=== PATIENT | female | born 1995 ===

== ENCOUNTER 2020-08-02 08:41 | Emergency (ER) | payer BC, SELFPAY ==
[2020-08-02 08:53] VITALS: BP 116/61; PULSE 79; RESP 18; TEMP 36.6; O2SAT 99; BMI 23.9
[2020-08-02 09:16] VITALS: BP 119/74; PULSE 78; RESP 16; O2SAT 100
--- NOTE | 2020-08-02 09:19 | PC.NURSE ---
pt alert and oriented, skin pwd, respirations even and unlabored. pt reports on thursday was at bridal shower after then started having nausea and dry heaving, which has resolved, no having right sided temperol headache/general weakness/ poor po intake and one episode of blood in stool. pt also reports having blood in stool in the past, denies abd pain
[2020-08-02 09:37] LABS: MANUAL DIFF FLAG NO
[2020-08-02 09:40] LABS: Glucose Urine UA NEG (NEG); Leukocyte Esterase Urine NEG (NEG); Nitrite Urine NEG (NEG); Urine Blood NEG (NEG); Urine Ketones NEG (NEG); Urine Protein TRACE MG/DL (NEG-TRACE)
[2020-08-02 09:41] LABS: Basophils Percent Auto 0.5 % (0-2); Eosinophils Absolute Auto 0.2 X10*3/uL (0.0-0.4); Eosinophils Percent Auto 3.1 % (0-4); Hematocrit 38.3 % (37-47); Hemoglobin 12.5 g/dl (12.0-16.0); Imm Gran Abs Auto 0.03 X10*3/uL (0.00-0.03); Imm Gran Pct Auto 0.5 % (0.0-0.4); Lymphocytes Absolute Auto 2.3 X10*3/uL (1.2-4.9); Lymphocytes Percent Auto 37.7 % (20-40); Mean Corpuscular HGB Conc 32.6 g/dl (31.0-35.0); Mean Corpuscular Hemoglobin 29.9 pg (27.0-33.0); Mean Corpuscular Volume 91.6 fL (80-98); Mean Platelet Volume 11.1 fL (9.4-12.3); Monocytes Absolute Auto 0.6 X10*3/uL (0.1-1.2); Neutrophils Percent Auto 49.2 % (45-73); Platelet Count 209 X10*3/uL (160-400); Red Blood Count 4.18 X10*6/uL (4.20-5.50); Red Cell Distribution Width 13.2 % (11.0-16.0); White Blood Count 6.1 X10*3/uL (4.8-10.8)
[2020-08-02 09:42] LABS: Appearance Urine CLOUDY; Color Urine YELLOW; UPreg QC Valid YES; Urine Pregnancy NEGATIVE (NEGATIVE)
[2020-08-02 10:00] LABS: Anion Gap 10 (12-20); Blood Urea Nitrogen 11 mg/dL (9-16); Calcium 9.3 mg/dL (8.4-10.2); Carbon Dioxide 26 mmol/L (22-29); Chloride 108 mmol/L (96-108); Creatinine Clr Calc Pharmacy 90.1; Estimated Glomerular Filt Rate > 60; Glucose Random 97 mg/dL (60-115); Potassium 4.1 mmol/L (3.3-5.1); Sodium 140 mmol/L (135-145)
[2020-08-02 10:06] LABS: COVID-19 Test Negative (Negative)
[2020-08-02 10:09] LABS: Prothrombin Time 11.4 SEC (10.8-13.0)
--- NOTE | 2020-08-02 10:36 | ED_ITS ---
HPI - General Adult General Chief complaint: General Medical Stated complaint: vomiting blood Time Seen by Provider: 08/02/20 10:36 History of Present Illness HPI narrative: 24-year-old otherwise healthy female presents to the emergency department with reports of nausea, vomiting and diarrhea with increasing side over the last few days. Patient states over the weekend she went to a bridal shower and ate some food. Shortly after had multiple episodes of nonbloody nonbilious emesis. Denies any blood in the emesis but states she did start to notice some blood in her stool which is not abnormal for her. States this happens at times and is not concerning. Symptoms did improve but she continues to feel nausea which has prevented her from eating and drinking appropriately. States she has also felt more anxious. Tried to reach out to her therapist and there is a psychiatrist referral in process. States she took someone else's risperidone 5 mg on Thursday and feels like this may be her symptoms worse. Denies HI or SI. Denies chest pain or shortness of breath. Denies abdominal pain or dysuria. Denies chance of . Due to concern she felt she needed to be seen. Related Data Allergies Allergy/AdvReac Type Severity Reaction Status Date / Time No Known Allergies Allergy Verified 08/02/20 10:44 Review of Systems Review of Systems: Constitutional : No Weight loss, No Fever, No Chills, No Night Sweats, + Fatigue, + Malaise ENT/Mouth : No Hearing loss, No Ear Pain, No Nasal Congestion, No Sinus Pain, No Hoarseness, No sore throat, No Rhinorrhea, No Swallowing Difficulty Eyes: No Eye Pain, No Swelling, No Redness, No Foreign Body, No Discharge, No Vision Changes Cardiovascular : No Chest Pain, No SOB, No Dyspnea on Exertion, No Orthopnea, No Edema, No Palpitations Respiratory : No Cough, No Sputum, No Wheezing, No Smoke Exposure, No Dyspnea Gastrointestinal : + Nausea, + Vomiting, + Diarrhea, No Constipation, No abdominal Pain, No Hematochezia Genitourinary : no irregular bleeding, No Dysuria, No Urinary Frequency, No Hematuria, No Urinary Incontinence, No Urgency, No Flank Pain, No Urinary Flow Changes, No Hesitancy Musculoskeletal : No joint pain, No Myalgias, No Joint Swelling Skin : No Skin Lesions, No rash Neuro : No Weakness, No Numbness, No Paresthesias, No Loss of Consciousness, No Dizziness, No Headache Psych : + Anxiety/Panic, No Depression, No SI/HI/AH/VH, No Social Issues, Heme/Lymph: No Bruising, No Bleeding,No Lymphadenopathy Endocrine : No Polyuria, No Polydipsia, No Temperature Intolerance [facility] Past Medical History Attestation statement: The following information was validated with the patient. Source: old records reviewed and nursing notes reviewed Surgical History (Updated 08/02/20 @ 08:57 by Alexis Hooper) H/O congenital atrial septal defect (ASD) repair H/O knee surgery Social History Social History Alcohol intake: current Alcohol intake frequency: a few times a week Use of substances other than those prescribed or required for medical reasons: No Advance Directives: Yes Advance Directives Information Provided: Yes Advance Directives on File: No Patient : No Physical Exam Vital Signs: Vital Signs: Last Vital Signs Temp 98 F 08/02/20 08:53 Pulse 75 08/02/20 10:57 Resp 16 08/02/20 10:57 BP 117/78 08/02/20 10:57 Pulse Ox 100 08/02/20 10:57 Body Mass Index 23.9 vital signs have been reviewed as normal and appeared to be correct. Blood pressure normal. Heart rate normal. Respiration rate normal. Temperature normal. Oxygen saturation normal. Appearance: Alert. Oriented X3. No acute distress. Head: Normal external exam. Normocephalic. Atraumatic. No Beyer signs noted. No raccoon eyes noted Eyes: Conjunctiva and sclera normal. ENT: EAC normal. Moist mucous membranes. No drooling noted. No muffled voice noted. Neck: Normal inspection. Neck supple. FROM. No meningeal signs. CVS: Pulses normal throughout. Heart sounds normal. Respiratory: No respiratory distress. Painless inspiration. No accessory muscle usage noted Abdomen: No visible injury noted. Abdomen soft nd/nt. Back: Full range of motion noted. Skin: Skin warm and dry. Normal skin color. Normal skin turgor. Extremities: No lower extremity edema. Extremities exhibit normal range of motion. Neuro: Oriented X 3. No motor deficit. No sensory deficit. Course Reevaluation(s) Reevaluation #1: Patients symptoms have improved, she denies further nausea and tolerated PO. Will d/c home at this time with close outpatient FU. Medical Decision Making MDM Narrative Medical decision making narrative: Patient's vital signs are stable and she is afebrile. Patient presenting to the emergency department with reports of nausea vomiting diarrhea which is overall improved but continues to feel fatigued nauseous and anxious. Patient denies any blood in the emesis does admit to some mild blood in the stool which is normal for her. Labs obtained in triage without significant abnormalities including a stable H&H and normal LFTs. Abdomen soft nondistended nontender no need for abdominal imaging. Will place an IV hydrate with IV fluids medicate with Zofran for nausea and give a small dose of oral Ativan to help with patient's nausea. She is asking to referral to local psychiatrist to hopefully expedite process I feel this is reasonable. Patient adamantly denies SI or HI and seems appropriate will continue to monitor and reassess pending symptomatic control. Patient is stable Lab Data Result diagrams: 08/02/20 09:31 08/02/20 09:31 Labs: Lab Results 08/02/20 08/02/20 08/02/20 Range/Units 09:31 09:31 09:31 WBC 6.1 (4.8-10.8) X10*3/uL RBC 4.18 L (4.20-5.50) X10*6/uL Hgb 12.5 (12.0-16.0) g/dl Hct 38.3 (37-47) % MCV 91.6 (80-98) fL MCH 29.9 (27.0-33.0) pg MCHC 32.6 (31.0-35.0) g/dl RDW 13.2 (11.0-16.0) % Plt Count 209 (160-400) X10*3/uL MPV 11.1 (9.4-12.3) fL Immature Gran % (Auto) 0.5 H (0.0-0.4) % Neut % (Auto) 49.2 (45-73) % Lymph % (Auto) 37.7 (20-40) % [place] % (Auto) 9.0 (2-11) % Eos % (Auto) 3.1 (0-4) % Baso % (Auto) 0.5 (0-2) % Lymph # (Auto) 2.3 (1.2-4.9) X10*3/uL [place] # (Auto) 0.6 (0.1-1.2) X10*3/uL Eos # (Auto) 0.2 (0.0-0.4) X10*3/uL Baso # (Auto) 0.0 (0.0-0.2) X10*3/uL Abs Immat Gran (auto) 0.03 (0.00-0.03) X10*3/uL Absolute Neuts (auto) 3.0 (2.0-8.3) X10*3/uL Absolute Nucleated RBC 0.000 (0.0-0.012) X10*3/uL Nucleated RBC % (auto) 0.0 (0.0-0.2) /100WBC PT 11.4 (10.8-13.0) SEC INR 1.0 (0.9-1.1) Sodium 140 (135-145) mmol/L Potassium 4.1 (3.3-5.1) mmol/L Chloride 108 (96-108) mmol/L Carbon Dioxide 26 (22-29) mmol/L Anion Gap 10 L (12-20) BUN 11 (9-16) mg/dL Creatinine 0.81 (0.5-1.4) mg/dL Estim Creat Clear Calc 90.1 Estimated GFR > 60 Random Glucose 97 (60-115) mg/dL Calcium 9.3 (8.4-10.2) mg/dL Urine Color Urine Appearance Urine pH (5.0-8.0) Ur Specific [place] (1.005-1.025) Urine Protein (NEG-TRACE) MG/DL Urine Glucose (UA) (NEG) MG/DL Urine Ketones (NEG) MG/DL Urine Blood (NEG) Urine Nitrite (NEG) Ur Leukocyte Esterase (NEG) Urine Test (NEGATIVE) COVID-19 (MANUEL) (Negative) COVID-19 Clin Com 08/02/20 08/02/20 08/02/20 Range/Units 09:31 09:31 09:46 WBC (4.8-10.8) X10*3/uL RBC (4.20-5.50) X10*6/uL Hgb (12.0-16.0) g/dl Hct (37-47) % MCV (80-98) fL MCH (27.0-33.0) pg MCHC (31.0-35.0) g/dl RDW (11.0-16.0) % Plt Count (160-400) X10*3/uL MPV (9.4-12.3) fL Immature Gran % (Auto) (0.0-0.4) % Neut % (Auto) (45-73) % Lymph % (Auto) (20-40) % [place] % (Auto) (2-11) % Eos % (Auto) (0-4) % Baso % (Auto) (0-2) % Lymph # (Auto) (1.2-4.9) X10*3/uL [place] # (Auto) (0.1-1.2) X10*3/uL Eos # (Auto) (0.0-0.4) X10*3/uL Baso # (Auto) (0.0-0.2) X10*3/uL Abs Immat Gran (auto) (0.00-0.03) X10*3/uL Absolute Neuts (auto) (2.0-8.3) X10*3/uL Absolute Nucleated RBC (0.0-0.012) X10*3/uL Nucleated RBC % (auto) (0.0-0.2) /100WBC PT (10.8-13.0) SEC INR (0.9-1.1) Sodium (135-145) mmol/L Potassium (3.3-5.1) mmol/L Chloride (96-108) mmol/L Carbon Dioxide (22-29) mmol/L Anion Gap (12-20) BUN (9-16) mg/dL Creatinine (0.5-1.4) mg/dL Estim Creat Clear Calc Estimated GFR Random Glucose (60-115) mg/dL Calcium (8.4-10.2) mg/dL Urine Color YELLOW Urine Appearance CLOUDY Urine pH 7.0 (5.0-8.0) Ur Specific [place] 1.010 (1.005-1.025) Urine Protein TRACE (NEG-TRACE) MG/DL Urine Glucose (UA) NEG (NEG) MG/DL Urine Ketones NEG (NEG) MG/DL Urine Blood NEG (NEG) Urine Nitrite NEG (NEG) Ur Leukocyte Esterase NEG (NEG) Urine Test NEGATIVE (NEGATIVE) COVID-19 (MANUEL) Negative (Negative) COVID-19 Clin Com See Note Discharge Plan Discharge Clinical Impression: Anxiety Vomiting Qualifiers: Vomiting type: unspecified Vomiting Intractability: non-intractable Nausea presence: with nausea Qualified Code(s): R11.2 - Nausea with vomiting, unspecified Patient Disposition: Home, Self-Care Instructions: Acute Nausea and Vomiting (ED), Anxiety (ED) Additional Instructions: You were seen in the ED today for nausea, vomiting and diarrhea with continued nausea since an event this weekend. You have also been more anxious. Were given and anxiety medication which helped her symptoms he refused a nausea medication and fluids. You wanted to go home. [facility] be [facility] which he can reach out to inquire about local psychiatrist. We return to the ED for having thoughts of wanting to hurt herself or others or have continued vomiting and cannot tolerate liquids or solids. Referrals: [facility] [Physician] - 2 days Stand Alone Forms: Work/School Release Interventions: ED Discharge Assessment Last Done: 08/02/20 11:56 Discharge Date/Time: 08/02/20 11:57 Print Language: [place]i
[2020-08-02] MEDS: LORazepam 0.5 MG TABLET PO (10:55)
[2020-08-02 10:57] VITALS: BP 117/78; PULSE 75; RESP 16; O2SAT 100
== END 2020-08-02 11:57 | disposition home or self-care (01) ==
PROVIDERS: Emergency Provider Emergency Medicine Emergency Medical Services
DX: F41.9 Anxiety disorder, unspecified (principal); R11.2 Nausea with vomiting, unspecified; R19.7 Diarrhea, unspecified; Z20.822 Contact with and (suspected) exposure to COVID-19
CPT/HCPCS: 36415; 80048; 81003; 81025; 85025; 85610; 87635; 96361; 96374; 99284

== ENCOUNTER 2021-12-01 11:50 | Emergency (ER) | payer BC, SELFPAY ==
[2021-12-01] VITALS (7 sets, daily range): BP systolic 101–142; BP diastolic 60–90; PULSE 66–110; RESP 18–20; TEMP 36.3–37; O2SAT 98–100; BMI 25.6
--- NOTE | 2021-12-01 | ECG_ITS ---
Test Reason : TACHYCARDIA Blood Pressure : / mmHG Vent. Rate : 085 BPM Atrial Rate : 085 BPM P-R Int : 134 ms QRS Dur : 084 ms QT Int : 374 ms P-R-T Axes : 051 083 050 degrees QTc Int : 445 ms Normal sinus rhythm Normal ECG No previous ECGs available Referred By: Generic ED Physician Electronically Signed By:NELLI SHARPE MD
[2021-12-01 12:21] LABS: MANUAL DIFF FLAG NO
[2021-12-01 12:25] LABS: Basophils Percent Auto 0.5 % (0-2); Eosinophils Absolute Auto 0.3 X10*3/uL (0.0-0.4); Eosinophils Percent Auto 4.1 % (0-4); Hematocrit 37.9 % (37.0-47.0); Hemoglobin 12.6 g/dl (12.0-16.0); Imm Gran Abs Auto 0.04 X10*3/uL (0.00-0.03); Imm Gran Pct Auto 0.5 % (0.0-0.4); Lymphocytes Absolute Auto 2.5 X10*3/uL (1.2-4.9); Mean Corpuscular HGB Conc 33.2 g/dl (31.0-35.0); Mean Corpuscular Hemoglobin 30.4 pg (27.0-33.0); Mean Corpuscular Volume 91.3 fL (80.0-98.0); Mean Platelet Volume 11.6 fL (9.4-12.3); Monocytes Absolute Auto 0.5 X10*3/uL (0.1-1.2); Monocytes Percent Auto 6.1 % (2-11); Neutrophils Absolute Auto 4.2 x10*3/uL (2.0-8.3); Neutrophils Percent Auto 55.8 % (45-73); Platelet Count 204 X10*3/uL (160-400); Red Blood Count 4.15 X10*6/uL (4.20-5.50); Red Cell Distribution Width 12.3 % (11.0-16.0); White Blood Count 7.6 X10*3/uL (4.8-10.8)
--- NOTE | 2021-12-01 12:33 | ED_ITS ---
HPI - General Adult General Chief complaint: Abdominal Pain Stated complaint: S/O DIZZINESS/N/V Time Seen by Provider: 12/01/21 11:52 Source: patient Mode of arrival: ambulatory Limitations: no limitations History of Present Illness HPI narrative: 26-year-old female history ASD repair presents to the emergency department with sudden-onset dizziness, nausea, vomiting, in syncopal episode this morning. Patient tells me that he started feeling dizzy since she woke up, reports she was seeing black dots and then the room started spinning, she got in the shower and started feeling worse, she was able to get out of the shower and go lay on her bed where she tells me she passed out, lost consciousness. She reports that this was a witnessed event, it lasted about a minute. She reports she did not hit her head because she was lying in bed when she passed out. Patient tells me that after she gained consciousness she started having episodes of nausea and vomiting. She tells me right now she just does not feel right. In is experiencing some discomfort to the left ear. No hx of syncope or seizure in the past. Doesnt have concern for . Denies drugs, alcohol and tobacco. At this time denies chest pain, shortness of breath, headache, dizziness, vision changes, weakness, nausea, vomiting, abdominal pain. Related Data Allergies Allergy/AdvReac Type Severity Reaction Status Date / Time amoxicillin Allergy Unknown Verified 12/01/21 12:04 Penicillins Allergy Unknown Verified 12/01/21 12:04 Review of Systems Review of Systems: Constitutional : No Weight loss, No Fever, No Chills, No Fatigue, No Malaise ENT/Mouth : No sore throat, No Rhinorrhea Eyes: No Eye Pain, No Swelling, No Redness Cardiovascular : No Chest Pain, No SOB, No Dyspnea on Exertion, No Orthopnea, No Edema, No Palpitations Respiratory : No Cough, No Sputum, No Wheezing Gastrointestinal : + Nausea, + Vomiting, No Diarrhea, No Constipation, No abdominal Pain, No Hematochezia, No Melena Genitourinary : No Dysuria, No Urinary Frequency, No Hematuria, Musculoskeletal : No joint pain, No Myalgias, No Joint Swelling Skin : No Skin Lesions, No rash Neuro : No Weakness, No Numbness, + Dizziness, No Headache Psych : No Anxiety/Panic, No Depression All other systems reviewed and are negative Yes all other systems are reviewed and are negative [facility] Past Medical History Attestation statement: The following information was validated with the patient. Source: old records reviewed and nursing notes reviewed Surgical History H/O congenital atrial septal defect (ASD) repair H/O knee surgery Social History Social History Alcohol intake: current Alcohol intake frequency: a few times a week Patient Tobacco Use Status: Current everyday Tobacco user Smoked in Last 30 Days: Yes Use of substances other than those prescribed or required for medical reasons: Yes Substance Use Type: Marijuana Advance Directives: No Advance Directives Information Provided: No Patient : No Physical Exam ED Vital Signs: Vital Signs - 24 hr 12/01/21 12:00 12/01/21 12:44 12/01/21 14:24 Temperature 97.3 F 98.6 F 98.5 F Pulse Rate 97 66 95 Respiratory Rate 20 18 20 Blood Pressure 124/84 130/84 125/78 Pulse Oximetry 98 98 100 Oxygen Delivery Method Room Air Room Air Room Air 12/01/21 15:06 12/01/21 15:09 12/01/21 15:10 Temperature Pulse Rate 79 84 87 Respiratory Rate Blood Pressure 101/60 114/64 110/75 Pulse Oximetry Oxygen Delivery Method BMI result Body Mass Index 25.6 vss Appearance: Alert.? Oriented X3.? No acute distress.? Head: Normocephalic, atraumatic, no step-offs or deformities Eyes: Pupils equal, round and reactive to light.? Extraocular movements intact, pain-free, no nystagmus. ENT: Pharynx normal.? CVS: Normal heart rate and rhythm.? Pulses normal.? Respiratory: No respiratory distress.? Breath sounds normal.? Abdomen: Soft and nontender.? Skin: Skin warm and dry.? Normal skin color.? Normal skin turgor.? Extremities: No lower extremity edema.? No calf ttp. 5/5 strength to bilateral upper and lower extremities Neuro: Oriented X 3.? No motor deficit.? No sensory deficit. CN 2-12 intact. Normal [id number], steady tandem gait. Normal [id number]. Normal coordination. NIHSS- 0 GCS- 15 Course Course Course Narrative: I did discuss this case with my attending who agrees with diagnosis and treatment plan. Reevaluation(s) Reevaluation #1: CBC appears to be around patient's baseline. Chemistry with no acute e lectrolyte abnormalities requiring intervention. Troponin negative, EKG nonischemic. Lipase within normal limits. HCG negative. COVID negative. D- dimer negative unlikely PE. UA and head CT pending. Time: 15:00 Reevaluation #2: CT of the head with no acute findings. Vital signs negative numerically however when patient went to stand she reported dizziness. Will continue to hydrate and repeat Time: 16:09 Reevaluation #3: Patient reports she is feeling better, refusing 2 L of hydration and meclizine. 1 L finishing up. Patient ambulating with steady gait, neuro exam remains nonfocal. Patient ambulating with steady gait normal coordination. At this time patient will be discharged home likely vasovagal syncope, unlikely cardiac syncope. Advised to return with any new or worsening symptoms. Educated on worrisome signs and symptoms and when to return. At this time I feel comfortable discharge Time: 16:46 Medical Decision Making MDM Narrative Medical decision making narrative: 1250 26-year-old female presenting with likely vasovagal syncope. Reports she has been eating and drinking less than usual. Reports prodrome. Physical examination benign. GCS of 15 NIH stroke scale 0. Cerebellar function is intact. Vital signs are stable. Likely vasovagal syncope, unlikely cardiac syncope. Unlikely arrhythmia, cardiac in origin, PE, stroke, posterior infarct Plan at this time is basic labs, EKG, troponin, head CT, fluids. Will also obtain orthostatic vitals Medical Records Medical records reviewed: Yes I reviewed the patient's medical records. Lab Data Lab results reviewed: Yes I reviewed the patient's lab results. Result diagrams: 12/01/21 12:15 12/01/21 12:15 Labs: Lab Results 12/01/21 12/01/21 12/01/21 Range/Units 12:15 12:15 12:15 WBC 7.6 (4.8-10.8) X10*3/uL RBC 4.15 L (4.20-5.50) X10*6/uL Hgb 12.6 (12.0-16.0) g/dl Hct 37.9 (37.0-47.0) % MCV 91.3 (80.0-98.0) fL MCH 30.4 (27.0-33.0) pg MCHC 33.2 (31.0-35.0) g/dl RDW 12.3 (11.0-16.0) % Plt Count 204 (160-400) X10*3/uL MPV 11.6 (9.4-12.3) fL Immature Gran % (Auto) 0.5 H (0.0-0.4) % Neut % (Auto) 55.8 (45-73) % Lymph % (Auto) 33.0 (20-40) % [place] % (Auto) 6.1 (2-11) % Eos % (Auto) 4.1 H (0-4) % Baso % (Auto) 0.5 (0-2) % Lymph # (Auto) 2.5 (1.2-4.9) X10*3/uL [place] # (Auto) 0.5 (0.1-1.2) X10*3/uL Eos # (Auto) 0.3 (0.0-0.4) X10*3/uL Baso # (Auto) 0.0 (0.0-0.2) X10*3/uL Abs Immat Gran (auto) 0.04 H (0.00-0.03) X10*3/uL Absolute Neuts (auto) 4.2 (2.0-8.3) x10*3/uL Absolute Nucleated RBC 0.000 (0.0-0.012) X10*3/uL Nucleated RBC % (auto) 0.0 (0.0-0.2) /100WBC D-Dimer High Sensitivty NG/ML Sodium 138 (135-145) mmol/L Potassium 4.0 (3.3-5.1) mmol/L Chloride 109 H (96-108) mmol/L Carbon Dioxide 17 L (22-29) mmol/L Anion Gap 16 (12-20) BUN 9 (9-16) mg/dL Creatinine 0.69 (0.5-1.4) mg/dL Estim Creat Clear Calc 110.0 Estimated GFR > 60 Random Glucose 118 H (60-115) mg/dL Calcium 8.9 (8.4-10.2) mg/dL Total Bilirubin 0.9 (0.0-1.0) mg/dL AST 15 (5-31) U/L ALT 8 (0-31) U/L Alkaline Phosphatase 45 (39-117) U/L Troponin I High Sens (<3.5-17.0) ng/L Total Protein 6.5 (6.5-8.0) g/dL Albumin 4.2 (3.5-5.0) g/dL Lipase 23 (8-78) U/L Beta HCG, Quant < 2 mIU/mL Urine Color Urine Appearance Urine pH (5.0-9.0) Ur Specific [place] (1.005-1.025) Urine Protein (Neg-Trace) mg/dL Urine Glucose (UA) (Negative) mg/dL Urine Ketones (Negative) mg/dL Urine Blood (Negative) Urine Nitrite (Negative) Ur Leukocyte Esterase (Negative) Urine RBC (0-2) /HPF Urine WBC (0-5) /HPF Ur Squamous Epith Cells (0-2) /HPF Urine Bacteria (None Seen) Hyaline Casts (0-2) /LPF Urine Test (NEGATIVE) COVID-19 (MANUEL) (Negative) COVID-19 Clin Com Influenza Type A (VERA) Negative (Negative) Influenza Type B (VERA) Negative (Negative) Influenza A & B Note See Note 12/01/21 12/01/21 12/01/21 Range/Units 12:15 13:03 14:16 WBC (4.8-10.8) X10*3/uL RBC (4.20-5.50) X10*6/uL Hgb (12.0-16.0) g/dl Hct (37.0-47.0) % MCV (80.0-98.0) fL MCH (27.0-33.0) pg MCHC (31.0-35.0) g/dl RDW (11.0-16.0) % Plt Count (160-400) X10*3/uL MPV (9.4-12.3) fL Immature Gran % (Auto) (0.0-0.4) % Neut % (Auto) (45-73) % Lymph % (Auto) (20-40) % [place] % (Auto) (2-11) % Eos % (Auto) (0-4) % Baso % (Auto) (0-2) % Lymph # (Auto) (1.2-4.9) X10*3/uL [place] # (Auto) (0.1-1.2) X10*3/uL Eos # (Auto) (0.0-0.4) X10*3/uL Baso # (Auto) (0.0-0.2) X10*3/uL Abs Immat Gran (auto) (0.00-0.03) X10*3/uL Absolute Neuts (auto) (2.0-8.3) x10*3/uL Absolute Nucleated RBC (0.0-0.012) X10*3/uL Nucleated RBC % (auto) (0.0-0.2) /100WBC D-Dimer High Sensitivty < 150 NG/ML Sodium (135-145) mmol/L Potassium (3.3-5.1) mmol/L Chloride (96-108) mmol/L Carbon Dioxide (22-29) mmol/L Anion Gap (12-20) BUN (9-16) mg/dL Creatinine (0.5-1.4) mg/dL Estim Creat Clear Calc Estimated GFR Random Glucose (60-115) mg/dL Calcium (8.4-10.2) mg/dL Total Bilirubin (0.0-1.0) mg/dL AST (5-31) U/L ALT (0-31) U/L Alkaline Phosphatase (39-117) U/L Troponin I High Sens < 3.5 (<3.5-17.0) ng/L Total Protein (6.5-8.0) g/dL Albumin (3.5-5.0) g/dL Lipase (8-78) U/L Beta HCG, Quant mIU/mL Urine Color Urine Appearance Urine pH (5.0-9.0) Ur Specific [place] (1.005-1.025) Urine Protein (Neg-Trace) mg/dL Urine Glucose (UA) (Negative) mg/dL Urine Ketones (Negative) mg/dL Urine Blood (Negative) Urine Nitrite (Negative) Ur Leukocyte Esterase (Negative) Urine RBC (0-2) /HPF Urine WBC (0-5) /HPF Ur Squamous Epith Cells (0-2) /HPF Urine Bacteria (None Seen) Hyaline Casts (0-2) /LPF Urine Test (NEGATIVE) COVID-19 (MANUEL) Negative (Negative) COVID-19 Clin Com See Note Influenza Type A (VERA) (Negative) Influenza Type B (VERA) (Negative) Influenza A & B Note 12/01/21 12/01/21 Range/Units 14:53 14:53 WBC (4.8-10.8) X10*3/uL RBC (4.20-5.50) X10*6/uL Hgb (12.0-16.0) g/dl Hct (37.0-47.0) % MCV (80.0-98.0) fL MCH (27.0-33.0) pg MCHC (31.0-35.0) g/dl RDW (11.0-16.0) % Plt Count (160-400) X10*3/uL MPV (9.4-12.3) fL Immature Gran % (Auto) (0.0-0.4) % Neut % (Auto) (45-73) % Lymph % (Auto) (20-40) % [place] % (Auto) (2-11) % Eos % (Auto) (0-4) % Baso % (Auto) (0-2) % Lymph # (Auto) (1.2-4.9) X10*3/uL [place] # (Auto) (0.1-1.2) X10*3/uL Eos # (Auto) (0.0-0.4) X10*3/uL Baso # (Auto) (0.0-0.2) X10*3/uL Abs Immat Gran (auto) (0.00-0.03) X10*3/uL Absolute Neuts (auto) (2.0-8.3) x10*3/uL Absolute Nucleated RBC (0.0-0.012) X10*3/uL Nucleated RBC % (auto) (0.0-0.2) /100WBC D-Dimer High Sensitivty NG/ML Sodium (135-145) mmol/L Potassium (3.3-5.1) mmol/L Chloride (96-108) mmol/L Carbon Dioxide (22-29) mmol/L Anion Gap (12-20) BUN (9-16) mg/dL Creatinine (0.5-1.4) mg/dL Estim Creat Clear Calc Estimated GFR Random Glucose (60-115) mg/dL Calcium (8.4-10.2) mg/dL Total Bilirubin (0.0-1.0) mg/dL AST (5-31) U/L ALT (0-31) U/L Alkaline Phosphatase (39-117) U/L Troponin I High Sens (<3.5-17.0) ng/L Total Protein (6.5-8.0) g/dL Albumin (3.5-5.0) g/dL Lipase (8-78) U/L Beta HCG, Quant mIU/mL Urine Color Yellow Urine Appearance Clear Urine pH 6.5 (5.0-9.0) Ur Specific [place] 1.015 (1.005-1.025) Urine Protein Negative (Neg-Trace) mg/dL Urine Glucose (UA) Negative (Negative) mg/dL Urine Ketones 15 (Negative) mg/dL Urine Blood Large (3+) H (Negative) Urine Nitrite Negative (Negative) Ur Leukocyte Esterase Negative (Negative) Urine RBC 0-2 (0-2) /HPF Urine WBC 0-5 (0-5) /HPF Ur Squamous Epith Cells 6-10 (0-2) /HPF Urine Bacteria 1+ (None Seen) Hyaline Casts 0-2 (0-2) /LPF Urine Test NEGATIVE (NEGATIVE) COVID-19 (MANUEL) (Negative) COVID-19 Clin Com Influenza Type A (VERA) (Negative) Influenza Type B (VERA) (Negative) Influenza A & B Note Critical Care Time Critical Care Time Critical Care Time: No Discharge Plan Discharge Clinical Impression: Syncope, vasovagal Patient Disposition: Home, Self-Care Additional Instructions: Take your medications as prescribed. If you were prescribed antibiotics today, it is important that you take your medication to their entirety, do not skip any doses, do not finish them early. Follow-up with your primary care provider this week. Return to the emergency department with new or worsening symptoms. Such as fevers, chills, chest pain, shortness of breath, nausea, vomiting, dizziness, headache, vision changes, lethargy In case of emergency call 911 Please ensure year eating and drinking well. Referrals: Physician,Nonstaff [Primary Care Provider] - 2 days Stand Alone Forms: Work/School Release
[2021-12-01 12:39] LABS: Alanine Aminotransferase 8 U/L (0-31); Albumin Level 4.2 g/dL (3.5-5.0); Alkaline Phosphatase 45 U/L (39-117); Anion Gap 16 (12-20); Aspartate Amino Transferase 15 U/L (5-31); Bilirubin Total 0.9 mg/dL (0.0-1.0); Blood Urea Nitrogen 9 mg/dL (9-16); Calcium 8.9 mg/dL (8.4-10.2); Carbon Dioxide 17 mmol/L (22-29); Chloride 109 mmol/L (96-108); Estimated Glomerular Filt Rate > 60; Glucose Random 118 mg/dL (60-115); Lipase 23 U/L (8-78); Sodium 138 mmol/L (135-145); Total Protein 6.5 g/dL (6.5-8.0)
[2021-12-01 12:41] LABS: COVID-19 Test Negative (Negative); IDNOW Serial# 16C4AD1C; Influenza A Negative (Negative); Influenza B2 Negative (Negative)
[2021-12-01 13:28] LABS: Troponin-I High Sensitivity < 3.5 ng/L (<3.5-17.0)
[2021-12-01] MEDS: 0.9 % Sodium Chloride 1,000 ML 999 ML IV (13:50)
--- NOTE | 2021-12-01 14:27 | PC.NURSE ---
PT V/S are stable, PT has IV on RAC 22G, the vein finder was utilized. Pt has hyperactive bowel sound on the Left and right lower quadrants. Pt lungs sounds are clear. Pt has a rash light red on her upper back. Pt has the right left swollen, no pain on touch. Pt reports experiencing N/V after the episode of syncope, pt Bf witnessed and pt denies hitting her head on the bathtub. will continue to monitor.
[2021-12-01 14:29] LABS: D Dimer High Sensitivity < 150 NG/ML
[2021-12-01 15:00] LABS: Appearance Urine Clear; Color Urine Yellow; Glucose Urine UA Negative (Negative); Leukocyte Esterase Urine Negative (Negative); Nitrite Urine Negative (Negative); PH 6.5 (5.0-9.0); Specific Gravity - Urine 1.015 (1.005-1.025); UMIC TRIGGER UACC YES; Urine Blood Large (3+) (Negative); Urine Ketones 15 mg/dL (Negative); Urine Protein Negative (Neg-Trace)
[2021-12-01 15:02] LABS: UPreg QC Valid YES; Urine Pregnancy NEGATIVE (NEGATIVE)
[2021-12-01 15:10] LABS: HCG Quantitative < 2 mIU/mL
[2021-12-01 15:12] LABS: Bacteria Urine 1+ (None Seen); Hyaline Casts Urine 0-2 /LPF (0-2); RBC Urine 0-2 /HPF (0-2); WBC Urine 0-5 /HPF (0-5)
--- NOTE | 2021-12-01 16:07 | PC.NURSE ---
Addendum entered by Amy Torres 12/01/21 16:09: Pt IVF first bag are still running. Original Note: Pt has refused the meds and the crystalloid Bolus that was added by the provider order. Pt is resting and no apparent of distress. Provider will be notified.
== END 2021-12-01 17:04 | disposition home or self-care (01) ==
PROVIDERS: Emergency Medicine; Physician Assistant; Emergency Provider Emergency Medicine Emergency Medical Services
DX: R55 Syncope and collapse (principal); R00.0 Tachycardia, unspecified; R42 Dizziness and giddiness; F17.200 Nicotine dependence, unspecified, uncomplicated; Z20.822 Contact with and (suspected) exposure to COVID-19; Z71.6 Tobacco abuse counseling; Z79.899 Other long term (current) drug therapy
CPT/HCPCS: 36415; 70450; 80053; 81001; 81003; 81025; 83690; 84484; 84702; 85025; 85379; 87502; 87635; 93005; 99284; 99285

== ENCOUNTER 2023-01-03 14:42 | Emergency (ER) | payer OTHER, BC, SELFPAY ==
[2023-01-03 14:52] VITALS: BP 122/78; BP 138/81; PULSE 105; PULSE 110; RESP 17; TEMP 36.4; O2SAT 100; BMI 24.6
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
[2023-01-03] MEDS: Ibuprofen 400 MG TABLET PO (15:52)
[2023-01-03] MEDS: Fluorescein Sodium STRIP 1 STRIP EYE-LEFT (15:56)
== END 2023-01-03 16:33 | disposition home or self-care (01) ==
PROVIDERS: Emergency Provider Emergency Medicine Emergency Medical Services
DX: S40.012A Contusion of left shoulder, initial encounter (principal); S80.02XA Contusion of left knee, initial encounter; S00.83XA Contusion of other part of head, initial encounter; V43.52XA Car driver injured in collision with other type car in traffic accident, initial encounter; W22.11XA Striking against or struck by driver side automobile airbag, initial encounter; Y93.89 Activity, other specified; Y92.414 Local residential or business street as the place of occurrence of the external cause; Y99.9 Unspecified external cause status
CPT/HCPCS: 99283

== ENCOUNTER 2023-09-19 14:20 | Emergency (ER) | payer BC, SELFPAY ==
--- NOTE | ~2023-09-19 | US_ITS ---
EXAMINATION: US OBSTETRICAL ULTRASOUND CLINICAL INFORMATION: Right lower quadrant abdominal pain. COMPARISON: None available. LMP: 08/11/2023. Gestational age by maternal dates is 5 weeks 4 days. Estimated date of delivery by maternal dates is 05/17/2024. TECHNIQUE: Ultrasound of the maternal pelvis is performed using transabdominal and transvaginal transducers. Transvaginal imaging is performed due to inadequate visualization transabdominally. FINDINGS: There is a single intrauterine gestational sac with visible yolk sac. The yolk sac has an inner diameter of 1 mm. No embryo/fetus or cardiac activity is identified at this time. There is no significant subchorionic hemorrhage or hematoma. MSD: 1.1 cm (5 weeks 3 days ) POLY (estimated date of delivery): 05/16/2024 . MATERNAL ADNEXA: The right maternal ovary measures 3 x 2 x 1.8 cm. The left maternal ovary measures 3.5 x 2.7 x 3.1 cm. There is a 2 x 1.5 x 2.3 cm corpus luteum at the left ovary. There is no significant maternal adnexal mass. No maternal pelvic ascites. US/US OB pelvic and transvaginal IMPRESSION: 1. Single intrauterine gestational sac with ultrasound gestational age of 5 weeks 3 days. The fetus is not yet seen, likely too early to detect. 2. No maternal adnexal mass or pelvic ascites.
--- NOTE | ~2023-09-19 | US_ITS ---
EXAMINATION: US ABDOMEN LIMITED CLINICAL INFORMATION: Right lower quadrant abdominal pain COMPARISON: None. TECHNIQUE: Imaging of the abdomen was performed with a high-frequency linear transducer using graded compression. FINDINGS: The appendix is not demonstrated due to overlying gas and stool. No inflammatory changes are identified in the right lower quadrant. There is no free fluid. No lymphadenopathy. No rebound tenderness. US/US appendix IMPRESSION: Evaluation of the appendix is non-diagnostic due to overlying gas and stool. No inflammatory changes identified in the right lower quadrant.
[2023-09-19 14:24] VITALS: BP 154/91; PULSE 119; RESP 18; TEMP 36.9; O2SAT 98; BMI 24.8
--- NOTE | 2023-09-19 14:24 | ED_ITS ---
HPI - Abdominal Pain General Chief Complaint: Abdominal Pain Stated Complaint: abdominal pain Time Seen by Provider: 09/19/23 15:10 Source: patient Mode of arrival: ambulatory Limitations: no limitations History of Present Illness HPI narrative: Patient is a 27-year-old female who presents to the emergency department for evaluation. She reports over the past 4 days she has been experiencing right lower quadrant abdominal pain, nausea, vomiting, feeling ?like shit?, stating that she feels like she has the flu. She denies any fevers chills coughing sneezing or runny nose. She states that she works in a residential care setting as a counselor, and has been around other individuals who have had flu-like symptoms. She missed work over the past few days and upon returning to work today her nausea returned and she began vomiting so she left. She denies dysuria urinary frequency/urgency/hesitancy, or hematuria. Denies concern for sexually transmitted infections, has not had abnormal vaginal discharge or vaginal bleeding. She reports her last menstrual period to be 08/11/2023. When asked when it is typical for her menses to be irregular like this as this would exceed 3 days, she states ?well I am ?. She reports that she took go test approximately 2 weeks ago. She has not yet established care with any OBGYN, she states he is not certain what she wants to do with this as it was unplanned. She reports that since finding out she has been ?severely depressed?, she is not on any antidepressants, she does not follow with a therapist or a psychiatrist, she denies any suicidal or homicidal ideations. She is tearful at this time when speaking to me. She admits to feeling extremely anxious at this time, she has intermittently been feeling chest palpitations, she states that she had a history of ASD repair at the age of 14. Related Data Allergies Allergy/AdvReac Type Severity Reaction Status Date / Time amoxicillin Allergy Unknown Verified 09/19/23 14:26 Penicillins Allergy Unknown Verified 09/19/23 14:26 Review of Systems Review of Systems Yes all other systems are reviewed and are negative COUNT INCLUDES [facility] Past Medical History Attestation statement: The following information was validated with the patient. Source: old records reviewed Surgical History H/O knee surgery H/O congenital atrial septal defect (ASD) repair Social History Social History Alcohol intake: current Alcohol intake frequency: a few times a week Patient Tobacco Use Status: Current everyday Tobacco user Substance Use Type: Marijuana Advance Directives: No Do you have a plan to hurt others: No Plan Physical Exam ED Vital Signs: Vital Signs - 24 hr 09/19/23 14:24 Temperature 98.5 F Pulse Rate 119 H Respiratory Rate 18 Blood Pressure 154/91 H Pulse Oximetry 98 Oxygen Delivery Method Room Air BMI result Body Mass Index 24.8 Appearance: Alert.?Oriented to person, place and time. Anxious, mildly tearful Eyes: Pupils equal, round and reactive to light.? ENT: Pharynx normal.?? Neck: Normal inspection.? Neck supple.?? CVS: Heart sounds normal. Tachycardic? Pulses normal.?? Respiratory: No respiratory distress.? Lung sounds clear to auscultation bilaterally?? Abdomen: Soft with right lower quadrant tenderness upon palpation, no rebound tenderness. No rigidity. No guarding. Normoactive bowel sounds. Skin: Skin warm and dry.? Normal skin color.? Extremities: No lower extremity edema.? Neuro: Moves all extremities spontaneously. Sensation intact bilaterally. CN II- XII intact. No focal neuro deficits. Ambulates with normal steady gait. Course Course Course Narrative: This is a Rapid Medical Exam performed in triage by Iza Cohen PA-C. Full HPI, ROS and PE to be performed by primary ED provider. 27 year-old F w/ PMHx presenting to the ED c/o RLQ abdominal pain w/nausea & vomiting, palpitations and vision is off x 30 mins [employer]. denies urinary sx, constipation. LMP beginning of month PE: ambulating w/steady gait, nontoxic appearing Plan: Labs, UA Reevaluation(s) Reevaluation #1: Patient signed out to night NEVIN Valentín JAMES pending pelvic and appendix ultrasound, free T4 given low TSH, and serology testing in addition to re- evaluation Time: 16:07 Medical Decision Making Medical Decision Making MDM Narrative: Patient is a 27-year-old female who presents emergency department for evaluation of right-sided abdominal pain with nausea vomiting palpitations in the setting of recent unplanned , she is a . Based on the date of her last menstrual. Her estimated due date is 05/17/2024. Did discuss with patient that she may be slightly further along than just over 4 weeks, if she had a positive test 2 weeks ago. Regardless, serum hCG to be obtained and a pelvic ultrasound will be obtained to evaluate for intrauterine versus potential ectopic, given her location of pain in the right lower quadrant, although she does not have rebound tenderness will also obtain ultrasound of the appendix to evaluate for abnormality. She will receive normal saline 1 L IV fluid bolus in addition to Zofran for nausea and vomiting. CBC was obtained which is without leukocytosis anemia or thrombocytopenia. CMP is overall unremarkable, no significant electrolyte derangement or ARTEM, high sensitive troponin below detectable limits and EKG nonischemic to suggest ACS, urinalysis without compelling evidence of infection. Differential Diagnosis Differential Diagnoses: The differential diagnosis associated with the presentation includes (See narrative above) Admission/Observation Consideration of admission/observation: Escalation of care including admission/observation considered Lab Data MDM Lab Attestation statement: I reviewed the patient's lab results. 09/19/23 14:33 09/19/23 14:33 Labs: Lab Results 09/19/23 09/19/23 Range/Units 14:30 14:33 WBC 10.4 (4.8-10.8) X10*3/uL RBC 4.28 (4.20-5.50) X10*6/uL Hgb 13.5 (12.0-16.0) g/dl Hct 38.9 (37.0-47.0) % MCV 90.9 (80.0-98.0) fL MCH 31.5 (27.0-33.0) pg MCHC 34.7 (31.0-35.0) g/dl RDW 13.2 (11.0-16.0) % Plt Count 240 (160-400) X10*3/uL MPV 11.2 (9.4-12.3) fL Immature Gran % (Auto) 0.6 H (0.0-0.4) % Neut % (Auto) 62.0 (45-73) % Lymph % (Auto) 27.3 (20-40) % [place] % (Auto) 7.2 (2-11) % Eos % (Auto) 2.5 (0-4) % Baso % (Auto) 0.4 (0-2) % Lymph # (Auto) 2.8 (1.2-4.9) X10*3/uL [place] # (Auto) 0.8 (0.1-1.2) X10*3/uL Eos # (Auto) 0.3 (0.0-0.4) X10*3/uL Baso # (Auto) 0.0 (0.0-0.2) X10*3/uL Abs Immat Gran (auto) 0.06 H (0.00-0.03) X10*3/uL Absolute Neuts (auto) 6.4 (2.0-8.3) x10*3/uL Absolute Nucleated RBC 0.000 (0.0-0.012) X10*3/uL Nucleated RBC % (auto) 0.0 (0.0-0.2) /100WBC Sodium 138 (135-145) mmol/L Potassium 3.6 (3.3-5.1) mmol/L Chloride 109 H (96-108) mmol/L Carbon Dioxide 19 L (22-29) mmol/L Anion Gap 14 (12-20) BUN 5 L (9-16) mg/dL Creatinine 0.72 (0.5-1.4) mg/dL Estim Creat Clear Calc 107.1 Estimated GFR > 60 Random Glucose 102 (60-115) mg/dL Calcium 9.3 (8.4-10.2) mg/dL Magnesium 1.9 (1.6-2.6) mg/dL Total Bilirubin 1.3 H (0.0-1.0) mg/dL Direct Bilirubin 0.5 (0.0-0.5) mg/dL AST 14 (5-31) U/L ALT 10 (0-31) U/L Alkaline Phosphatase 44 (39-117) U/L Troponin I High Sens < 2.7 (<3.5-17.0) ng/L Total Protein 6.7 (6.5-8.0) g/dL Albumin 4.3 (3.5-5.0) g/dL Lipase 26 (8-78) U/L TSH 0.30 L (0.32-4.0) uIU/mL Beta HCG, Quant 49759 mIU/mL Urine Color Yellow Urine Appearance Clear Urine pH 6.0 (5.0-9.0) Ur Specific [place] 1.010 (1.005-1.025) Urine Protein Negative (Neg-Trace) mg/dL Urine Glucose (UA) Negative (Negative) mg/dL Urine Ketones Negative (Negative) mg/dL Urine Blood Negative (Negative) Urine Nitrite Negative (Negative) Ur Leukocyte Esterase Small (1+) H (Negative) Urine RBC 0-2 (0-2) /HPF Urine WBC 11-20 H (0-5) /HPF Ur Squamous Epith Cells 6-10 (0-2) /HPF Urine Bacteria Trace (None Seen) Hyaline Casts 0-2 (0-2) /LPF Urine Test POSITIVE H (NEGATIVE) Independent Interpretation I performed an independent interpretation of an: EKG Interpretation: Rate:93 Rhythm:? Normal sinus rhythm Normal P waves.? Normal LUCAS.?? Normal QRS complex.?? ST T wave :??No ST elevation, no ST depression, no T-wave inversion qTC: 430 prior studies:? November of 2021 The study has been interpreted contemporaneously by me. Radiology Impression Discussion of test interpretation with radiology: I have reviewed the radiologist's reading. External Record Review External record reviewed: Outpatient record Medications Administered Generic Name Dose Route Start Last Admin Trade Name Freq PRN Reason Stop Dose Admin Sodium Chloride 1,000 mls @ 999 mls/hr 09/19/23 15:15 09/19/23 15:37 Ns IV 09/19/23 16:15 999 mls/hr .Q1H1M JADON Administration Discontinued Medications Generic Name Dose Route Start Last Admin Trade Name Freq PRN Reason Stop Dose Admin Ondansetron HCl 4 mg 09/19/23 15:11 09/19/23 15:37 Ondansetron Hcl 4 Mg/2 Ml Vial IVPUSH 09/19/23 15:12 Not Given ONCE ONE Discharge Plan Discharge Clinical Impression: at early stage, Nausea and vomiting Patient Disposition: Still a Patient Print Language: Maltese
--- NOTE | 2023-09-19 14:26 | ECG_ITS ---
Test Reason : palpitations Blood Pressure : / mmHG Vent. Rate : 093 BPM Atrial Rate : 093 BPM P-R Int : 128 ms QRS Dur : 086 ms QT Int : 346 ms P-R-T Axes : 065 079 043 degrees QTc Int : 430 ms Poor data quality, interpretation may be adversely affected Normal sinus rhythm Normal ECG When compared with ECG of 01-DEC-2021 12:09, No significant change was found Referred By: Iza Cohen Electronically Signed By:CADEN SCHNEIDER
[2023-09-19 14:39] LABS: MANUAL DIFF FLAG NO
[2023-09-19 14:40] LABS: Basophils Percent Auto 0.4 % (0-2); Eosinophils Absolute Auto 0.3 X10*3/uL (0.0-0.4); Eosinophils Percent Auto 2.5 % (0-4); Hematocrit 38.9 % (37.0-47.0); Hemoglobin 13.5 g/dl (12.0-16.0); Imm Gran Abs Auto 0.06 X10*3/uL (0.00-0.03); Imm Gran Pct Auto 0.6 % (0.0-0.4); Lymphocytes Absolute Auto 2.8 X10*3/uL (1.2-4.9); Lymphocytes Percent Auto 27.3 % (20-40); Mean Corpuscular HGB Conc 34.7 g/dl (31.0-35.0); Mean Corpuscular Hemoglobin 31.5 pg (27.0-33.0); Mean Corpuscular Volume 90.9 fL (80.0-98.0); Mean Platelet Volume 11.2 fL (9.4-12.3); Monocytes Absolute Auto 0.8 X10*3/uL (0.1-1.2); Monocytes Percent Auto 7.2 % (2-11); Neutrophils Absolute Auto 6.4 x10*3/uL (2.0-8.3); Platelet Count 240 X10*3/uL (160-400); Red Blood Count 4.28 X10*6/uL (4.20-5.50); Red Cell Distribution Width 13.2 % (11.0-16.0); White Blood Count 10.4 X10*3/uL (4.8-10.8)
[2023-09-19 14:42] LABS: Appearance Urine Clear; Color Urine Yellow; Glucose Urine UA Negative (Negative); Leukocyte Esterase Urine Small (1+) (Negative); Nitrite Urine Negative (Negative); UMIC TRIGGER UACC YES; UPreg QC Valid YES; Urine Blood Negative (Negative); Urine Ketones Negative (Negative); Urine Pregnancy POSITIVE (NEGATIVE); Urine Protein Negative (Neg-Trace)
[2023-09-19 14:55] LABS: Bacteria Urine Trace (None Seen); Hyaline Casts Urine 0-2 /LPF (0-2); RBC Urine 0-2 /HPF (0-2); UACC Culture Trigger YES
[2023-09-19 15:06] LABS: Alanine Aminotransferase 10 U/L (0-31); Albumin Level 4.3 g/dL (3.5-5.0); Alkaline Phosphatase 44 U/L (39-117); Anion Gap 14 (12-20); Aspartate Amino Transferase 14 U/L (5-31); Bilirubin Direct 0.5 mg/dL (0.0-0.5); Bilirubin Total 1.3 mg/dL (0.0-1.0); Blood Urea Nitrogen 5 mg/dL (9-16); Calcium 9.3 mg/dL (8.4-10.2); Carbon Dioxide 19 mmol/L (22-29); Chloride 109 mmol/L (96-108); Creatinine Clr Calc Pharmacy 107.1; Estimated Glomerular Filt Rate > 60; Glucose Random 102 mg/dL (60-115); Lipase 26 U/L (8-78); Magnesium 1.9 mg/dL (1.6-2.6); Potassium 3.6 mmol/L (3.3-5.1); Sodium 138 mmol/L (135-145); Total Protein 6.7 g/dL (6.5-8.0)
[2023-09-19 15:23] LABS: Troponin-I High Sensitivity < 2.7 ng/L (<3.5-17.0)
--- NOTE | 2023-09-19 15:29 | MHC.EDTECH ---
Patient unable to finish bilateral visual acuity due to nausea.
[2023-09-19] MEDS: 0.9 % Sodium Chloride 1,000 ML 999 ML IV (15:37)
--- NOTE | 2023-09-19 15:39 | PC.NURSE ---
Addendum entered by Holli Young LPN 09/19/23 15:41: BLANKET BINDER Jeovanny notified via [email or web address] connect - pt awaiting US Original Note: 20G IV placed in R-AC 1L NS infusing per order- zofran ordered by provider for nausea- pt refuses sts she will not take meds
[2023-09-19 15:50] LABS: HCG Quantitative 19009 mIU/mL
[2023-09-19 16:13] LABS: Free T4 (Free Thyroxine) 1.03 ng/dL (0.71-1.85)
[2023-09-19 16:16] LABS: Influenza A PCR NEGATIVE (Negative); Influenza B PCR NEGATIVE (Negative); Resp Syncy Virus RNA Qual PCR NEGATIVE (Negative); SARS COV2 PCR INHOUSE NEGATIVE (Negative)
--- NOTE | 2023-09-19 17:09 | PC.NURSE ---
this nurse was called to pt room- pt sts she no longer wishes to receive fluids- request IV to be removed 2ndry to pain, IV patent w/ positive blood return. removed at pt request.
[2023-09-19 18:02] VITALS: BP 154/91; PULSE 119; RESP 18; TEMP 36.9; O2SAT 98
== END 2023-09-19 18:03 | disposition home or self-care (01) ==
PROVIDERS: Nurse Practitioner Family; Physician Assistant; Emergency Provider Emergency Medicine
DX: O26.891 Other specified pregnancy related conditions, first trimester (principal); R00.2 Palpitations; R11.2 Nausea with vomiting, unspecified; O99.331 Smoking (tobacco) complicating pregnancy, first trimester; F17.210 Nicotine dependence, cigarettes, uncomplicated; Z03.818 Encounter for observation for suspected exposure to other biological agents ruled out; Z3A.01 Less than 8 weeks gestation of pregnancy
CPT/HCPCS: 0241U; 36415; 76705; 76801; 76817; 80048; 80076; 81001; 81025; 83690; 83735; 84439; 84443; 84484; 84702; 85025; 87086; 93005; 96360; 96361; 99284

== ENCOUNTER → 2023-09-19 14:26 | Outpatient (BNV) | payer BC, SELFPAY | PROVIDERS: Emergency Provider Emergency Medicine; Visit Provider Internal Medicine | DX: R00.2 Palpitations (principal) | CPT/HCPCS: 93010 ==

== ENCOUNTER 2023-09-24 16:15 | Emergency (ER) | payer BC, SELFPAY ==
--- NOTE | 2023-09-24 16:24 | ED.FEMALEGU ---
HPI - Female Genitourinary General Chief complaint: Vaginal Bleeding Stated complaint: preg 6 wks/bleeding Time Seen by Provider: 09/24/23 16:53 Source: patient, RN notes reviewed and old records reviewed Mode of arrival: ambulatory Limitations: no limitations History of Present Illness ED Provider: JOSE PARKER PA-C HPI Narrative: 27 year old female, approximately 6 weeks , presents to the emergency department today for evaluation of nausea, vomiting, diarrhea, low back pain/cramping and heavy vaginal bleeding which began on waking this morning. Admits to passing clots. She has changed her pad 3 times since waking this morning. Took Motrin around noon. Patient was seen at [facility] ED 3 days ago. She was diagnosed with intrauterine with gestational age approximately 5 weeks and 3 days. Has not followed up with OBGYN since this visit. Denies fever, chills, flank pain, dysuria, hematuria, abnormal vaginal discharge. Related Data Allergies Allergy/AdvReac Type Severity Reaction Status Date / Time amoxicillin Allergy Unknown Verified 09/24/23 17:50 Penicillins Allergy Unknown Verified 09/24/23 17:50 Review of Systems Review of Systems: Constitutional: No fever, chills, fatigue, night sweats, weight changes ENT/Mouth: No ear pain, hearing loss, nasal congestion, sinus pain, rhinorrhea, sore throat Eyes: No eye pain, swelling, redness, vision changes, discharge Cardio: No chest pain, palpitations, NÚÑEZ, orthopnea, peripheral edema Pulm: No SOB, cough, sputum, wheezing, dyspnea, hemoptysis GI: No hematemesis, abdominal pain, diarrhea, constipation, hematochezia, melena, +nausea, +vomiting : No dysuria, frequency, urgency, hesitancy, hematuria, flank pain, urinary flow changes, urinary incontinence or retention, +vaginal bleeding MSK: No back pain, neck pain, joint pain, myalgias Skin: No lesions, rashes Neuro: No weakness, numbness, paresthesias, LOC, dizziness, headache Psych: No anxiety/panic, depression, SI/HI, AH/VH All other systems reviewed and are negative. [facility] Past Medical History Attestation statement: The following information was validated with the patient. Source: old records reviewed and nursing notes reviewed Surgical History H/O knee surgery H/O congenital atrial septal defect (ASD) repair Social History Social History Alcohol intake: current Alcohol intake frequency: a few times a week Patient Tobacco Use Status: Current everyday Tobacco user Substance Use Type: Marijuana Advance Directives: No Advance Directives Information Provided: No Do you have a plan to hurt others: No Plan Physical Exam Vital Signs: Vital Signs: Last Vital Signs Temp 98.4 F 09/24/23 16:55 Pulse 101 H 09/24/23 16:55 Resp 16 09/24/23 16:55 BP 126/84 09/24/23 16:55 Pulse Ox 99 09/24/23 16:55 O2 Del Method Room Air 09/24/23 16:55 BMI result Body Mass Index 24.8 Vital signs stable Const: General: cooperative, healthy appearing, comfortable and no acute distress Orientation/consciousness: patient oriented x3 Limitations: no limitations HEENT: Head: Yes normal to inspection, Yes No palpable skull fracture present, Yes normocephalic and Yes atraumatic Eyes: General: appearance normal, both eyes and all related structures Neck: Neck: Yes normal visual inspection Resp: Effort & Inspection: normal respiratory effort and able to speak in complete sentences Cardio: Rate: regular rate Rhythm: regular rhythm GI: Other: Abdomen is soft, nondistended, nontender to palpation, no rebound tenderness or guarding. Normoactive bowel sounds x4. : General: Yes no CVA tenderness Back/Spine/Pelvis: Back: no CVA tenderness Skin: General skin exam: no rashes or lesions noted Neuro: General: patient oriented x3 and gait normal Course Course Course Narrative: This is a Rapid Medical Examination (RME) performed by Aleisha Parker PA-C in triage. Full HPI, ROS, assessment and treatment plan per primary provider in the Main ED. 27 yo female approximately 6 wks , here for eval of N/V, diarrhea, low back pain/ cramping, and heavy vaginal bleeding that began on waking this morning. reports passing clots. has changed her pad 3 times since waking this morning. reports taking motrin around noon. Plan: labs, type and screen, rh, ob US. Reevaluation(s) Reevaluation #1: 9102--patient was called to the triage area to have her blood drawn. I was informed that she is requesting to leave the ED without workup and personally had a conversation with the patient. She states she does not know why she even came here and does not know what we will even do for her. I explained to the patient that we will be evaluating her hormone (hcg) levels and repeating her pelvic ultrasound to further look into her vaginal bleeding. There will also need to be a pelvic exam done once she is brought back to an exam room. I explained to the patient that I can not definitively say she is having a miscarriage until this workup is completed. She tells me that she knows she is having a miscarriage. I explained to the patient that if she leaves the emergency department without further workup this could result in worsening complications including . She verbalizes understanding and would like to leave the emergency department AMA. I did discuss worrisome signs and symptoms and when to return to the ED. will have her sign AMA paperwork. All risks of leaving the ED discussed with patient who verbalizes understanding. Medical Decision Making Medical Decision Making MDM Narrative: 27 year old female, approximately 6 weeks , presents to the emergency department today for evaluation of nausea, vomiting, diarrhea, low back pain/cramping and heavy vaginal bleeding which began on waking this morning. Patient is slightly tachycardic to 101. Vitals otherwise WNL. She is afebrile. Nontoxic appearing and in no acute distress. Abdomen is soft, ND/NT, no rebound or guarding. No CVAT. Pelvic exam unable to be performed as patient left AMA prior to this. Differential diagnosis includes intrauterine , bleeding in 1st trimester, threatened , inevitable , incomplete Plan for labs type and screen, UA, OB ultrasound. Differential Diagnosis Differential Diagnoses: The differential diagnosis associated with the presentation includes as above Admission/Observation admission considered on presentation External Record Review External record reviewed: Inpatient record (prior visit ) Social Determinants Patient?s care significantly limited by Social Determinants of Health including: Other Social Determinant of Health Discharge Plan Discharge Clinical Impression: Vaginal bleeding during Patient Disposition: Left Against Medical Advice Additional Instructions: You are choosing to leave the ED against medical advise. The risks of this were discussed with you, including worsening pain, infection, and even . You are still choosing to leave the ED without further work up. Return with new or worsening symptoms. In the case of an emergency call 911. Stand Alone Forms: Against Medical Advice Interventions: ED Discharge Assessment Last Done: 09/24/23 16:55 Discharge Date/Time: 09/24/23 17:02 Print Language: Persian
[2023-09-24 16:25] VITALS: BP 126/84; PULSE 101; RESP 16; TEMP 36.9; O2SAT 99; BMI 24.8
[2023-09-24 16:55] VITALS: BP 126/84; PULSE 101; RESP 16; TEMP 36.9; O2SAT 99
== END 2023-09-24 17:02 | disposition left against medical advice (07) ==
PROVIDERS: Emergency Provider Student in an Organized Health Care Education/Training Program
DX: O20.9 Hemorrhage in early pregnancy, unspecified (principal); R11.2 Nausea with vomiting, unspecified; R19.7 Diarrhea, unspecified; M54.50 Low back pain, unspecified; R10.9 Unspecified abdominal pain; Z3A.01 Less than 8 weeks gestation of pregnancy; F17.210 Nicotine dependence, cigarettes, uncomplicated; F12.90 Cannabis use, unspecified, uncomplicated
CPT/HCPCS: 99282

== ENCOUNTER 2023-09-24 17:44 | Emergency (ER) | payer BC, SELFPAY ==
--- NOTE | ~2023-09-24 | US_ITS ---
EXAMINATION: ULTRASOUND PELVIC, COMPLETE CLINICAL INFORMATION: . Vaginal bleeding. COMPARISON: Obstetrical ultrasound September 19, 2023 TECHNIQUE: Transvaginal: Used to better visualize pelvic structures Transabdominal: Not adequate for visualization Spectral Doppler and color Doppler exam was utilized. LMP: 08/11/2023. Gestational age by this LMP is 6 weeks 2 days. POLY 05/17/2024 FINDINGS: UTERUS: There is no intrauterine gestational sac/. The previously seen gestational sac ultrasound September 19, 2023 is no longer present. Findings consistent with spontaneous . There is debris within the endometrial cavity. Endometrial cavity measures 1.9 cm. Uterus measures 8.6 x 4 x 4.7 cm. ADNEXA: Ovarian vascularity:Doppler demonstrates both arterial and venous vascular flow in the right and left ovary. No evidence of ovarian torsion. Right Ovary: 2.9 x 1.4 x 1.9 cm Left Ovary: 3.7 x 3.2 x 2.6 cm Cul-de-sac: No Fluid US/US OB pelvic and transvaginal IMPRESSION: No intrauterine gestation. Findings consistent with spontaneous .
[2023-09-24 17:47] VITALS: BP 145/90; PULSE 90; RESP 17; TEMP 36.8; O2SAT 100; BMI 24.8
--- NOTE | 2023-09-24 17:52 | ED_ITS ---
HPI - General Adult General Chief complaint: General Medical Stated complaint: was discharged now feels worse Time Seen by Provider: 09/24/23 18:14 Related Data Previous Rx's ?Medication ?Instructions ?Recorded ondansetron 4 mg disintegrating 4 mg PO Q6H #14 tabs 09/24/23 tablet Allergies Allergy/AdvReac Type Severity Reaction Status Date / Time amoxicillin Allergy Unknown Verified 09/24/23 17:50 Penicillins Allergy Unknown Verified 09/24/23 17:50 COUNTS INCLUDE 234 BEDS AT THE [facility] Past Medical History Surgical History H/O knee surgery H/O congenital atrial septal defect (ASD) repair Social History Social History Alcohol intake: current Alcohol intake frequency: a few times a week Patient Tobacco Use Status: Current everyday Tobacco user Smoked in Last 30 Days: No Use of substances other than those prescribed or required for medical reasons: No Substance Use Type: Marijuana Advance Directives: No Advance Directives Information Provided: No Do you have a plan to hurt others: No Plan Patient : Yes Physical Exam ED Vital Signs: Vital Signs - 24 hr 09/24/23 17:47 09/24/23 18:28 Temperature 98.3 F Pulse Rate 90 105 H Respiratory Rate 17 18 Blood Pressure 145/90 H 136/88 Pulse Oximetry 100 97 Oxygen Delivery Method Room Air Room Air BMI result Body Mass Index 24.8 Course Course Course Narrative: This is a Rapid Medical Examination (RME) performed by Aleisha Parker PA-C in triage. Full HPI, ROS, assessment and treatment plan per primary provider in the Main ED. 27 year old female, approximately 6 weeks , here for of N/V/D, low back pain/cramping and heavy vaginal bleeding which began on waking this morning. Admits to passing clots. She has changed her pad 3 times since waking this morning. Took Motrin around noon. Patient was seen at [facility] 3 days ago. She was diagnosed with intrauterine with gestational age approximately 5 weeks and 3 days. Has not followed up with OBGYN since this visit. Patient was triaged here this morning for same. She decided to leave AMA prior to any labs or urine being collected or ultrasound being performed. Returns stating that upon returning home she vomited 1 time, has had heavier vaginal bleeding and now has increased abdominal cramping. Plan: labs, hcg, type and screen, rh, ob ultrasound Reevaluation(s) Reevaluation #1: 1847 ultrasounds concerning for a completed hCG today is 24 K was 19 K a few days ago. I explained the need to get repeat blood work in a few days. Having some nausea given zofran. I will send home. Medical Decision Making Lab Data 09/24/23 18:01 09/24/23 18:01 Labs: Lab Results 09/24/23 Range/Units 18:01 WBC 15.2 H (4.8-10.8) X10*3/uL RBC 4.39 (4.20-5.50) X10*6/uL Hgb 13.7 (12.0-16.0) g/dl Hct 39.9 (37.0-47.0) % MCV 90.9 (80.0-98.0) fL MCH 31.2 (27.0-33.0) pg MCHC 34.3 (31.0-35.0) g/dl RDW 13.0 (11.0-16.0) % Plt Count 257 (160-400) X10*3/uL MPV 11.5 (9.4-12.3) fL Immature Gran % (Auto) 0.7 H (0.0-0.4) % Neut % (Auto) 79.6 H (45-73) % Lymph % (Auto) 12.9 L (20-40) % [place] % (Auto) 6.0 (2-11) % Eos % (Auto) 0.4 (0-4) % Baso % (Auto) 0.4 (0-2) % Lymph # (Auto) 2.0 (1.2-4.9) X10*3/uL [place] # (Auto) 0.9 (0.1-1.2) X10*3/uL Eos # (Auto) 0.1 (0.0-0.4) X10*3/uL Baso # (Auto) 0.1 (0.0-0.2) X10*3/uL Abs Immat Gran (auto) 0.10 H (0.00-0.03) X10*3/uL Absolute Neuts (auto) 12.1 H (2.0-8.3) x10*3/uL Absolute Nucleated RBC 0.000 (0.0-0.012) X10*3/uL Nucleated RBC % (auto) 0.0 (0.0-0.2) /100WBC Sodium 137 (135-145) mmol/L Potassium 3.9 (3.3-5.1) mmol/L Chloride 108 (96-108) mmol/L Carbon Dioxide 21 L (22-29) mmol/L Anion Gap 12 (12-20) BUN 8 L (9-16) mg/dL Creatinine 0.76 (0.5-1.4) mg/dL Estim Creat Clear Calc 101.6 Estimated GFR > 60 Random Glucose 116 H (60-115) mg/dL Calcium 9.2 (8.4-10.2) mg/dL Magnesium 1.8 (1.6-2.6) mg/dL Total Bilirubin 1.8 H (0.0-1.0) mg/dL AST 13 (5-31) U/L ALT 10 (0-31) U/L Alkaline Phosphatase 46 (39-117) U/L Total Protein 6.8 (6.5-8.0) g/dL Albumin 4.2 (3.5-5.0) g/dL Lipase 43 (8-78) U/L Beta HCG, Quant 99387 mIU/mL Blood Type A Positive Discharge Plan Discharge Clinical Impression: Spontaneous Patient Disposition: Home, Self-Care Instructions: Miscarriage (ED) Additional Instructions: You were seen today for vaginal bleeding in early . The medical term term for this is a threatened ultrasound and labs show an hCG level of 26 thousand toady. Your ultrasound was showing no intrauterine gestation wears want to been seen just stays before. You do need to follow-up with her medical donation professional have make sure the hCG level continues to go down. Prescriptions: New ondansetron 4 mg tablet,disintegrating 4 mg PO Q6H Qty: 14 0RF Print Language: Guatemalan
[2023-09-24 18:06] LABS: MANUAL DIFF FLAG NO
[2023-09-24 18:14] LABS: Basophils Absolute Auto 0.1 X10*3/uL (0.0-0.2); Basophils Percent Auto 0.4 % (0-2); Eosinophils Absolute Auto 0.1 X10*3/uL (0.0-0.4); Eosinophils Percent Auto 0.4 % (0-4); Hematocrit 39.9 % (37.0-47.0); Hemoglobin 13.7 g/dl (12.0-16.0); Imm Gran Pct Auto 0.7 % (0.0-0.4); Lymphocytes Percent Auto 12.9 % (20-40); Mean Corpuscular HGB Conc 34.3 g/dl (31.0-35.0); Mean Corpuscular Hemoglobin 31.2 pg (27.0-33.0); Mean Corpuscular Volume 90.9 fL (80.0-98.0); Mean Platelet Volume 11.5 fL (9.4-12.3); Monocytes Absolute Auto 0.9 X10*3/uL (0.1-1.2); Neutrophils Absolute Auto 12.1 x10*3/uL (2.0-8.3); Neutrophils Percent Auto 79.6 % (45-73); Platelet Count 257 X10*3/uL (160-400); Red Blood Count 4.39 X10*6/uL (4.20-5.50); White Blood Count 15.2 X10*3/uL (4.8-10.8)
--- NOTE | 2023-09-24 18:21 | PC.NURSE ---
pt is at ultrasound
[2023-09-24 18:28] VITALS: BP 136/88; PULSE 105; RESP 18; O2SAT 97
--- NOTE | 2023-09-24 18:31 | PC.NURSE ---
pt teary and emotional about threatened . states bleeding has become heavier. 1 pad/hr. awaits [place] read.
[2023-09-24 18:32] LABS: Alanine Aminotransferase 10 U/L (0-31); Albumin Level 4.2 g/dL (3.5-5.0); Alkaline Phosphatase 46 U/L (39-117); Anion Gap 12 (12-20); Aspartate Amino Transferase 13 U/L (5-31); Bilirubin Total 1.8 mg/dL (0.0-1.0); Blood Urea Nitrogen 8 mg/dL (9-16); Calcium 9.2 mg/dL (8.4-10.2); Carbon Dioxide 21 mmol/L (22-29); Chloride 108 mmol/L (96-108); Creatinine Clr Calc Pharmacy 101.6; Estimated Glomerular Filt Rate > 60; Glucose Random 116 mg/dL (60-115); Lipase 43 U/L (8-78); Magnesium 1.8 mg/dL (1.6-2.6); Potassium 3.9 mmol/L (3.3-5.1); Sodium 137 mmol/L (135-145); Total Protein 6.8 g/dL (6.5-8.0)
[2023-09-24] MEDS: Ondansetron ODT 4 MG TAB.RAPDIS TRANSLINGU (19:13)
--- NOTE | 2023-09-24 19:35 | PC.NURSE ---
attempt to discharge. pt states she's feeling worse and would like IV fluids.
[2023-09-24 20:01] VITALS: BP 99/38; PULSE 77; RESP 16; TEMP 36.9; O2SAT 97
[2023-09-24] MEDS: 0.9 % Sodium Chloride 1,000 ML 999 ML IV (20:16)
[2023-09-24] MEDS: Ketorolac Tromethamine 15 MG/ML VIAL IVPUSH (20:55)
[2023-09-24] MEDS: Acetaminophen 325 MG TABLET 650 MG PO (20:55)
[2023-09-24 21:18] VITALS: BP 93/48; PULSE 92; RESP 18; TEMP 36.7; O2SAT 100
== END 2023-09-24 21:23 | disposition home or self-care (01) ==
PROVIDERS: Physician Assistant Medical; Emergency Provider Student in an Organized Health Care Education/Training Program
DX: O03.9 Complete or unspecified spontaneous abortion without complication (principal)
CPT/HCPCS: 36415; 76801; 76817; 80053; 83690; 83735; 84702; 85025; 86900; 86901; 96361; 96374; 99284; J1885